=== PATIENT | male | born 1975 | race Caucasian/White ===

== ENCOUNTER 2020-06-04 17:56 | Emergency (ER) | payer OTHER ==
[2020-06-04 19:38] LABS: RED BLOOD COUNT 4.51 M/UL (4.20-5.50); WHITE BLOOD COUNT 6.6 K/UL (4.5-11.0)
[2020-06-04 20:01] LABS: BUN/CREATININE RATIO 11 (0-10)
[2020-06-04] MEDS ORDERED: PROTONIX40 MG PO (23:04)
[2020-06-04] MEDS ORDERED: ZOFRAN ODT 4 MG4 MG PO (23:04)
[2020-06-04] MEDS ORDERED: BENTYL 20MG TAB20 MG PO (23:04)
== END 2020-06-04 23:30 | disposition home or self-care (01) ==
LOC: ER1 17:56
PROVIDERS: Emergency Medicine
DX: R10.11 Right upper quadrant pain (principal); F17.210 Nicotine dependence, cigarettes, uncomplicated
CPT/HCPCS: 80053; 81001; 83690; 85025; 96365; 96372; 96375; 99284; C9113; J0500; J2270; J2405; J7030; Q9967

== ENCOUNTER 2020-09-25 14:52 | Emergency (ER) | payer OTHER ==
[~2020-09-25 14:52] MED LIST: BENTYL 20MG TAB20 MG PO; PROTONIX40 MG PO; ZOFRAN ODT 4 MG4 MG PO
[2020-09-25 16:14] LABS: HEMOGLOBIN 15.8 gm/dl (14.0-17.5); RED BLOOD COUNT 4.69 M/UL (4.20-5.50); WHITE BLOOD COUNT 6.2 K/UL (4.5-11.0)
[2020-09-25 16:42] LABS: BUN/CREATININE RATIO 5 (0-10)
== END 2020-09-25 18:08 | disposition home or self-care (01) ==
LOC: ER1 14:52
PROVIDERS: Physician Assistant Medical
DX: J06.9 Acute upper respiratory infection, unspecified (principal); I10 Essential (primary) hypertension; F41.9 Anxiety disorder, unspecified; F17.200 Nicotine dependence, unspecified, uncomplicated; Z20.822 Contact with and (suspected) exposure to COVID-19
CPT/HCPCS: 71046; 80053; 85025; 99283; U0002